=== PATIENT | female | born 1980 | race Caucasian/White ===

== ENCOUNTER 2017-12-26 09:04 | Observation (INO) | payer MEDICAID ==
[~2017-12-26] VITALS: Ht 160 cm; Wt 65.5 kg
[2017-12-26 09:50] LABS: BASOPHILS # (AUTO) 0.02 x10^3/uL (0-0.1); BASOPHILS % (AUTO) 0 % (0-1); EOSINOPHILS # (AUTO) 0.03 x10^3/uL (0-0.4); EOSINOPHILS % (AUTO) 1 % (1-7); LYMPHOCYTES # (AUTO) 1.29 x10^3/uL (1-3.4); LYMPHOCYTES % (AUTO) 21 % (22-44); MD NO; MEAN CORPUSCULAR HEMOGLOBIN 27.5 pg (27.0-34.8); MEAN CORPUSCULAR HGB CONC 33.2 g/dL (32.4-35.8); MEAN CORPUSCULAR VOLUME 82.7 fL (80-100); MEAN PLATELET VOLUME 6.9 fL (7.4-10.4); MONOCYTES # (AUTO) 0.44 x10^3/uL (0.2-0.8); MONOCYTES % (AUTO) 7 % (2-9); NEUTROPHILS % (AUTO) 72 % (42-75); PLATELET COUNT 258 x10^3/uL (130-400); RED BLOOD COUNT 3.32 x10^6/uL (3.82-5.3); RED CELL DISTRIBUTION WIDTH 14.2 % (9.6-15.2)
[2017-12-26 10:03] LABS: ALBUMIN 2.9 g/dL (3.4-5.0); ANION GAP 7 mmol/L (5-15); CALCIUM 8.3 mg/dL (8.5-10.1); CHLORIDE 103 mmol/L (98-107)
[2017-12-26 10:20] LABS: ALANINE AMINOTRANSFERASE 39 U/L (12-78); ALKALINE PHOSPHATASE 75 U/L (45-117); CREATININE 0.62 mg/dL (0.55-1.02); TOTAL PROTEIN 6.9 g/dL (6.4-8.2)
[2017-12-26 10:29] LABS: MICROSCOPIC INDICATED
[2017-12-26] MEDS ORDERED: MORPHINE SULFATE 4 MG/ML, 1ML IVPush ONE (10:30)
[2017-12-26] MEDS ORDERED: SODIUM CHLORIDE FLUSH 10ML SYR IVF ONE (10:30)
[2017-12-26] MEDS ORDERED: SODIUM CHLORIDE 0.9% 1,000ML IVBOLUS ONE (10:30)
[2017-12-26] MEDS ORDERED: MORPHINE SULFATE 4 MG/ML, 1ML ONE (10:32)
[2017-12-26 10:52] LABS: CULTURE INDICATED? YES
[2017-12-26] MEDS ORDERED: HYDROmorphone 2 MG/ML, 1ML ONE (10:53)
[2017-12-26] MEDS ORDERED: HYDROmorphone 1 MG/ML, 1ML IM ONE (11:00)
[2017-12-26] MEDS ORDERED: LACT1CAP43 PO (12:31)
[2017-12-26] MEDS ORDERED: POTASSIUM CHLORIDE 20 MEQ in D5%-0.45% NACL 1,000 ML IV ONE (13:03)
[2017-12-26] MEDS ORDERED: MIDAZOLAM 1 MG/ML, 2ML ONE (13:57)
[2017-12-26] MEDS ORDERED: FENTANYL PF 250 MCG/5ML ONE (13:57)
[2017-12-26] MEDS ORDERED: PROPOFOL 10 MG/ML, 20ML ONE (13:58)
[2017-12-26] MEDS ORDERED: LIDOCAINE-MPF 2% ,5ML ONE (13:58)
[2017-12-26] MEDS ORDERED: ROCURONIUM 10MG/ML,5ML ONE (13:58)
[2017-12-26] MEDS ORDERED: DEXAMETHASONE 4 MG/ML, 1ML ONE ×2 (13:59)
[2017-12-26] MEDS ORDERED: ONDANSETRON 2MG/ML, 2ML ONE ×2 (13:59)
[2017-12-26] MEDS ORDERED: RHOGAM FROM BLOOD BANK 1 NOTE EA IM/IV ONE (14:00)
[2017-12-26] MEDS ORDERED: BUPIVACAINE 0.25% ONE (14:27)
[2017-12-26] MEDS ORDERED: SILVER NITRATE STICK TP ONE (14:27)
[2017-12-26] MEDS ORDERED: ACETAMINOPHEN 500 MG TABLET ONE (14:39)
[2017-12-26] MEDS ORDERED: SCOPOLAMINE PATCH, 1.5MG PATCH.TD72 TD ONE (14:39)
[2017-12-26] MEDS ORDERED: CEFOTETAN 2 GM ONE (14:47)
[2017-12-26] MEDS ORDERED: BUPIVACAINE/PF 0.25% INFIL ONE (15:05)
[2017-12-26] MEDS ORDERED: NEOSTIGMINE 1 MG/ML, 10ML ONE (15:54)
[2017-12-26] MEDS ORDERED: GLYCOPYRROLATE 0.4 MG/2 ML, 2ML ONE (15:54)
[2017-12-26] MEDS ORDERED: ONDANSETRON ODT 8 MG PO PRN (16:30)
[2017-12-26] MEDS ORDERED: ACETAMINOPHEN 325 MG TABLET PO PRN (16:30)
[2017-12-26] MEDS ORDERED: HYDROmorphone 1 MG/ML, 1ML IV PRN (16:30)
[2017-12-26] MEDS ORDERED: MEPERIDINE/PF 25MG/0.5ML IVPush PRN (16:30)
[2017-12-26] MEDS ORDERED: OXYcodone 5 MG/5 ML ORAL.SOL UDC PO PRN (16:30)
[2017-12-26] MEDS ORDERED: FENTANYL PF 100 MCG/2ML IV PRN (16:30)
[2017-12-26] MEDS ORDERED: DIPHENHYDRAMINE 50 MG/ML, 1ML IVPush PRN (16:30)
[2017-12-26 16:40] VITALS: BP 102/71
[2017-12-26 17:58] VITALS: BP 96/63
[2017-12-26 19:00] VITALS: BP 90/64
[2017-12-27] VITALS: BP 91/58
[2017-12-27] MEDS: OXYcodone/APAP 5/325MG TABLET PO PRN ×4 (02:27→13:04)
[2017-12-27] MEDS: LACTATED RINGERS 1,000 ML IV SCH ×2 (02:28→10:40)
[2017-12-27 03:18] VITALS: BP 93/68
[2017-12-27 07:57] VITALS: BP 98/68
[2017-12-27 12:51] VITALS: BP 94/61
== END 2017-12-27 15:24 | disposition home or self-care (01) ==
LOC: ED 12:59 → EDIP 13:00 → ED 13:30 → 4NOR 18:28
PROVIDERS: ADMIT Obstetrics & Gynecology; ATTEND Obstetrics & Gynecology
DX: O26.891 Other specified pregnancy related conditions, first trimester (principal); N73.6 Female pelvic peritoneal adhesions (postinfective); K66.1 Hemoperitoneum; D62 Acute posthemorrhagic anemia; O99.331 Smoking (tobacco) complicating pregnancy, first trimester; O99.321 Drug use complicating pregnancy, first trimester; F15.10 Other stimulant abuse, uncomplicated; O09.521 Supervision of elderly multigravida, first trimester; O21.9 Vomiting of pregnancy, unspecified; Z3A.11 11 weeks gestation of pregnancy
CPT/HCPCS: 36415; 58660; 76801; 80053; 81001; 83690; 84702; 84703; 85014; 85018; 85025; 86850; 86900; 86923; 87086; 96360; 96361; 96372; 99291; G0378; J1100; J1170; J2250; J2405; J2704; J2710; J2790; J3010; J3480; J3490; J7120; P9016; S0074; J7030

== ENCOUNTER 2018-07-05 12:09 | Emergency (ER) | payer MEDICAID ==
[~2018-07-05] VITALS: Ht 160 cm; Wt 66.8 kg
[~2018-07-05 12:09] MED LIST: LACT1CAP43 PO
[2018-07-05 12:33] VITALS: BP 147/92
--- NOTE | 2018-07-05 13:26 | NUR ---
PT IN EYE ROOM, COAT OVER HER HEAD, FAMILY/FRIEND IN ROOM. CALL LIGHT WITHIN REACH. AWAITING ERP TO SEE.
[2018-07-05] MEDS ORDERED: POLYTRIM OPHTH 10ML RIGHTEYE ONE (14:00)
--- NOTE | 2018-07-05 14:27 | NUR ---
PT GIVEN EYE GTTS, SCRIPT, DC INSTRUCTS AND TAXI VOUCHER TO OPTHAMOLOGIST. PT AWARE OF NEED TO F/U THIS LATE AFTERNOON WITH OPTH.
[2018-07-06] MEDS ORDERED: POLY10DR3 EACHEYE (13:48)
[2018-07-06] MEDS ORDERED: CEFA1SYR IV (13:48)
== END 2018-07-05 14:28 | disposition home or self-care (01) ==
LOC: ED 13:32
DX: H16.031 Corneal ulcer with hypopyon, right eye (principal); H10.021 Other mucopurulent conjunctivitis, right eye; F15.10 Other stimulant abuse, uncomplicated; F17.200 Nicotine dependence, unspecified, uncomplicated
CPT/HCPCS: 99283

== ENCOUNTER 2018-07-05 17:46 | Inpatient (IN) | payer MEDICAID ==
[~2018-07-05] VITALS: Ht 160 cm; Wt 67.3 kg
--- NOTE | 2018-07-05 18:03 | NUR ---
PT TO ROOM FROM LOBBY
--- NOTE | 2018-07-05 18:14 | NUR ---
38 Y/O FEMALE PRESENTS TO ED WITH C/O RIGHT EYE PAIN. PER PT "WE GOT SENT HERE FROM THE EYE DR. 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 THAT I NEED TO GET SURGERY, BUT AT [facility].I WOKE UP THIS MORNING AND DIDN'T HAVE ANY SIGHT. FOR THE LAST WEEK MY EYE HAS BEEN CRUSTY. IT'S BEEN PAINFUL FOR THE LAST TWO WEEKS. WHEN I TRY TO PUT ON MY SHOES THE PRESSURE MAKES MY EYE HURT MORE." SIGNIFICANT OTHER BEDSIDE AND GIVING PT HER EYE DROPS. NO C/O TRAUMA, SYNCOPE, CP, SOB.
[2018-07-05] MEDS ORDERED: SODIUM CHLORIDE FLUSH 10ML SYR IVF ONE (18:30)
[2018-07-05] MEDS ORDERED: CEFAZOLIN 1,000 MG IM ONE (18:30)
[2018-07-05] MEDS ORDERED: DIPH,PERTUSS(ACELL),TET VAC/PF 0.5 ML IM-VACC ONE ×2 (18:30→19:14)
[2018-07-05] MEDS ORDERED: CEFAZOLIN 1,000 MG ONE (19:13)
--- NOTE | 2018-07-05 19:26 | NUR ---
IV PLACED, ANTIBIOTIC INFUSING PER ERP ORDER AFTER VERIFICATION WITH ERP OF ORDER FOR ANCEF 1GM IV. TETANUS GIVEN PER ORDER. AWAITING DISPO LOCATION. PT PROVIDED WARM BLANKET, CALL LIGHT WITHIN REACH.
[2018-07-05] MEDS: CEFAZOLIN PMX 1GM/50ML 50 ML IV SCH (19:30)
--- NOTE | 2018-07-05 19:57 | NUR ---
THROUGHPUT RN: PT HAS [facility] INSURANCE, [facility] CALLED AND PASTOR DENIED.
--- NOTE | 2018-07-05 20:02 | NUR ---
THROUGHPUT RN: PT HAS [facility] INSURANCE, [facility] [facility] CALLED, SPOKE TO HOUSE SUP EDU Anaya, DENIED PT.
[2018-07-05] MEDS ORDERED: OXYcodone IR 5MG TABLET PO PRN (20:30)
[2018-07-05] MEDS ORDERED: ONDANSETRON ODT 4 MG PO PRN (20:30)
[2018-07-05] MEDS: POLYTRIM OPHTH 10ML EACHEYE SCH ×2 (20:30→23:37)
[2018-07-05] MEDS ORDERED: ACETAMINOPHEN 325 MG TABLET PO PRN (20:30)
[2018-07-05] MEDS ORDERED: BISACODYL 10 MG SUPP PR PRN (20:30)
[2018-07-05] MEDS ORDERED: POLYTRIM OPHTH 10ML EACHEYE SCH (21:00)
--- NOTE | 2018-07-05 21:11 | NUR ---
L&D IN TO SEE PT. FHT 134. PT DENIES ANY CRAMPING, PAIN, OR DISCHARGE. REPORT CALLED TO LAYLA HALL. PT READY FOR TRANSPORT TO FLOOR
[2018-07-05 22:04] LABS: AMPHETAMINE SCREEN, URINE Positive (Negative); BARBITURATE SCREEN, URINE Negative (Negative); BENZODIAZEPINE SCREEN, URINE Negative (Negative); CANNABINOID SCREEN, URINE Negative (Negative); COCAINE SCREEN, URINE Negative (Negative); METHADONE SCREEN, URINE Negative (Negative); OPIATE SCREEN, URINE Negative (Negative)
[2018-07-05] MEDS: SODIUM CHLORIDE FLUSH 10ML SYR IVF SCH (23:38)
[2018-07-06] MEDS: POLYTRIM OPHTH 10ML EACHEYE SCH ×5 (02:23→13:36)
[2018-07-06 02:28] VITALS: BP 119/80
[2018-07-06] MEDS: CEFAZOLIN PMX 1GM/50ML 50 ML IV SCH ×2 (04:47→13:36)
[2018-07-06 05:30] LABS: BASOPHILS # (AUTO) 0.03 x10^3/uL (0-0.1); BASOPHILS % (AUTO) 0 % (0-1); EOSINOPHILS # (AUTO) 0.05 x10^3/uL (0-0.4); EOSINOPHILS % (AUTO) 1 % (1-7); LYMPHOCYTES # (AUTO) 2.37 x10^3/uL (1-3.4); LYMPHOCYTES % (AUTO) 33 % (22-44); MD NO; MEAN CORPUSCULAR HEMOGLOBIN 24.7 pg (27.0-34.8); MEAN CORPUSCULAR HGB CONC 32.6 g/dL (32.4-35.8); MEAN PLATELET VOLUME 7.8 fL (7.4-10.4); MONOCYTES # (AUTO) 0.32 x10^3/uL (0.2-0.8); MONOCYTES % (AUTO) 5 % (2-9); NEUTROPHILS # (AUTO) 4.43 x10^3/uL (1.8-6.8); NEUTROPHILS % (AUTO) 62 % (42-75); PLATELET COUNT 279 x10^3/uL (130-400); RED BLOOD COUNT 4.23 x10^6/uL (3.82-5.3)
[2018-07-06 05:49] LABS: ALANINE AMINOTRANSFERASE 14 U/L (12-78); ALBUMIN 1.8 g/dL (3.4-5.0); ANION GAP 5 mmol/L (5-15); CALCIUM 7.6 mg/dL (8.5-10.1); CHLORIDE 110 mmol/L (98-107); CREATININE 0.52 mg/dL (0.55-1.02)
[2018-07-06 05:51] LABS: ALKALINE PHOSPHATASE 175 U/L (45-117); BILIRUBIN,TOTAL 0.7 mg/dL (0.2-1.0); TOTAL PROTEIN 5.6 g/dL (6.4-8.2)
[2018-07-06 07:46] VITALS: BP 118/81
[2018-07-06] MEDS: SODIUM CHLORIDE FLUSH 10ML SYR IVF SCH (08:38)
[2018-07-06] MEDS ORDERED: PRENATAL VIT/IRON/FA 1 EACH TABLET PO SCH (10:00)
[2018-07-06] MEDS ORDERED: CEFA1SYR IV (13:48)
[2018-07-06] MEDS ORDERED: POLY10DR3 EACHEYE (13:48)
== END 2018-07-06 15:43 | disposition short-term general hospital (02) | DRG 832 ==
LOC: ED 18:33 → EDIP 19:53 → 3NE 21:28
PROVIDERS: ADMIT Internal Medicine; ATTEND Internal Medicine
DX: O26.893 Other specified pregnancy related conditions, third trimester (principal); O98.413 Viral hepatitis complicating pregnancy, third trimester; H20.9 Unspecified iridocyclitis; O99.323 Drug use complicating pregnancy, third trimester; H16.9 Unspecified keratitis; Z3A.36 36 weeks gestation of pregnancy; B19.20 Unspecified viral hepatitis C without hepatic coma; F15.10 Other stimulant abuse, uncomplicated; O99.333 Smoking (tobacco) complicating pregnancy, third trimester; H54.61 Unqualified visual loss, right eye, normal vision left eye; H16.001 Unspecified corneal ulcer, right eye; H10.9 Unspecified conjunctivitis; F17.210 Nicotine dependence, cigarettes, uncomplicated; Z83.49 Family history of other endocrine, nutritional and metabolic diseases; Z59.0 Homelessness; Z80.8 Family history of malignant neoplasm of other organs or systems
CPT/HCPCS: 36415; 59025; 80053; 80074; 80307; 85025; 87521; 87522; 87806; 87902; 90471; 90715; 96365; 96366; G0378; J0690; G0475

== ENCOUNTER 2019-05-13 22:21 | Emergency (ER) | payer MEDICAID ==
[~2019-05-13] VITALS: Ht 170.2 cm; Wt 53.4 kg
[~2019-05-13 22:21] MED LIST changes: +CEFA1SYR6 IV; +POLY10DR3 EACHEYE
--- NOTE | 2019-05-13 22:36 | NUR ---
PT HUNCHED OVER, AMBULATORY BACK FROM TRIAGE, MOANING LOUDLY.. ATTEMPTED TO COMPLETE ASSMT, PT SHOUTING AT STAFF..IM HURTING GOD DAMN IT.. REQUESTED PT TO CHANGE INTO A GOWN.
--- NOTE | 2019-05-13 23:01 | NUR ---
REQUESTED PTS FRENDS TO LEAVE D/T SHOUTING BETWEEN THEM & PT.
--- NOTE | 2019-05-13 23:05 | NUR ---
PT AMBULATORY TO RESTROOM. URINE PROVIDED & SENT. PT CONTINUES TO SHOUT AT STAFF & FRIENDS. LIMITED EXAM PERFORMED. PER BOYFRIEND, PT SHOT UP METH LAST NIGHT & WITHIN MINUTES BEGAN HAVING PAIN, "I THINK THERE WAS SOMETHING WRONG WITH THE METH" BF ALSO STATED PT USED AGAIN THIS AFTERNOON, APPROX 2HR FINISH PAINTER.
[2019-05-13] MEDS ORDERED: DIPHENHYDRAMINE 50 MG/ML, 1ML ONE (23:25)
[2019-05-13] MEDS ORDERED: LORazepam 2 MG/ML, 1ML ONE (23:25)
[2019-05-13] MEDS ORDERED: SODIUM CHLORIDE FLUSH 10ML SYR IVF ONE (23:30)
[2019-05-13] MEDS ORDERED: KETOROLAC 30 MG/1 ML IVPush ONE (23:30)
[2019-05-13] MEDS ORDERED: DIPHENHYDRAMINE 50 MG/ML, 1ML IVPush ONE (23:30)
[2019-05-13] MEDS ORDERED: SODIUM CHLORIDE 0.9% 1,000ML IVBOLUS ONE ×2 (23:30)
[2019-05-13] MEDS ORDERED: LORazepam 2 MG/ML, 1ML IVPush ONE (23:30)
[2019-05-13 23:31] LABS: HCG UR SG 1.039 (1.003-1.030); MICROSCOPIC AUTO
[2019-05-13 23:34] LABS: CULTURE INDICATED? YES
[2019-05-13 23:41] LABS: AMPHETAMINE SCREEN, URINE Positive (Negative); BARBITURATE SCREEN, URINE Negative (Negative); BENZODIAZEPINE SCREEN, URINE Negative (Negative); CANNABINOID SCREEN, URINE Positive (Negative); COCAINE SCREEN, URINE Positive (Negative); METHADONE SCREEN, URINE Negative (Negative); OPIATE SCREEN, URINE Negative (Negative)
[2019-05-13 23:59] LABS: BASOPHILS # (AUTO) 0.01 x10^3/uL (0-0.1); BASOPHILS % (AUTO) 0 % (0-1); EOSINOPHILS # (AUTO) 0.01 x10^3/uL (0-0.4); EOSINOPHILS % (AUTO) 0 % (1-7); LYMPHOCYTES # (AUTO) 1.03 x10^3/uL (1-3.4); LYMPHOCYTES % (AUTO) 7 % (22-44); MD NO; MEAN CORPUSCULAR VOLUME 84.8 fL (80-100); MEAN PLATELET VOLUME 7.5 fL (7.4-10.4); MONOCYTES # (AUTO) 0.48 x10^3/uL (0.2-0.8); MONOCYTES % (AUTO) 3 % (2-9); NEUTROPHILS # (AUTO) 14.26 x10^3/uL (1.8-6.8); NEUTROPHILS % (AUTO) 90 % (42-75); PLATELET COUNT 309 x10^3/uL (130-400); RED BLOOD COUNT 4.68 x10^6/uL (3.82-5.3); RED CELL DISTRIBUTION WIDTH 15.8 % (9.6-15.2)
[2019-05-14 00:07] LABS: ALANINE AMINOTRANSFERASE 18 U/L (12-78); ALBUMIN 3.3 g/dL (3.4-5.0); ANION GAP 7 mmol/L (5-15); CALCIUM 8.7 mg/dL (8.5-10.1); CHLORIDE 105 mmol/L (98-107); CREATININE 0.73 mg/dL (0.55-1.02)
[2019-05-14 00:09] LABS: ALKALINE PHOSPHATASE 91 U/L (45-117); BILIRUBIN,TOTAL 1.2 mg/dL (0.2-1.0); CREATINE KINASE, TOTAL 55 U/L (26-192); TOTAL PROTEIN 7.8 g/dL (6.4-8.2)
[2019-05-14] MEDS ORDERED: CEFTRIAXONE PMX 1GM/50ML 50 ML ONE (00:11)
[2019-05-14] MEDS ORDERED: CEFTRIAXONE PMX 1GM/50ML 50 ML IV ONE (00:30)
[2019-05-14] MEDS ORDERED: LORazepam 2 MG/ML, 1ML ONE (01:23)
[2019-05-14] MEDS ORDERED: LORazepam 2 MG/ML, 1ML IVPush ONE (01:30)
--- NOTE | 2019-05-14 02:31 | NUR ---
NICHOLE RN: ATTEMPTED TO DISCHARGE PT. PT PROVIDED WITH NEW CLOTHES, WARM CLOTHES. UNABLE TO DRESS HERSELF. NOT WAKING UP TO GET DRESSED. UNABLE TO FOLLOW COMMANDS. THIS RN AND A TECH GOT PATIENT DRESSED HOWEVER PT IS UNABLE TO STAND. ERP AWARE. PT WILL BE MONITORED A LITTLE LONGER AND BE DISCHARGED WHEN IT'S SAFE TO DO SO. REPORT TO PRIMARY RNROSAMARIA
[2019-05-14 02:50] VITALS: BP 112/78
--- NOTE | 2019-05-14 04:37 | NUR ---
PT SLEEPING, RR EVEN NON LABORED. WILL CTM.
--- NOTE | 2019-05-14 06:17 | NUR ---
PT CONTINUES TO SLEEP ON CART, RR EVEN NON LABORED. WILL CTM
--- NOTE | 2019-05-14 07:03 | NUR ---
REPORT RECEIVED FROM ROSAMARIA HALL.
--- NOTE | 2019-05-14 07:25 | NUR ---
PT'S FRIEND AT BEDSIDE. PT STILL SLEEPING. RESPS EVEN AND UNLABORED.
--- NOTE | 2019-05-14 07:56 | NUR ---
Patient given discharge instructions and they have confirmed that they understand the instructions. Patient ambulatory with steady gait. SNACKS AND JUICE PROVIDED AT DC.
== END 2019-05-14 07:57 | disposition home or self-care (01) ==
LOC: ED 05-14 04:57
DX: N39.0 Urinary tract infection, site not specified (principal); F12.10 Cannabis abuse, uncomplicated; F14.10 Cocaine abuse, uncomplicated; F15.10 Other stimulant abuse, uncomplicated; F17.210 Nicotine dependence, cigarettes, uncomplicated
CPT/HCPCS: 36415; 80053; 80307; 81001; 81025; 82550; 83690; 84703; 85025; 87086; 96365; 96375; 96376; 99283; J0696; J1200; J2060; J7030